=== PATIENT | female | born 1975 | race Caucasian/White ===

== ENCOUNTER 2016-06-13 19:37 | Inpatient (IN) | payer MEDICAID ==
[~2016-06-13] VITALS: Ht 170.2 cm; Wt 106.2 kg
[~2016-06-13 19:37] MED LIST: ACET325T38 PO; CEPH-507 PO; LEVO125T6 PO; PEDI1TAB35 PO
--- OUTSIDE RECORDS SUMMARY | 2016-06-13 19:40 | XMS REPORT | Continuity of Care Document ---
Author Author [facility] Organization [facility] Address Unknown Phone Unavailable Care Team Providers Care Psychological Anthropologist Name Role Phone NO, LOCAL PHYSICIAN PCP Unavailable Insurance Providers Payer Name Policy Number Subscriber Name Relationship Medicaid [place] [id number] Jadyn Cole 19 Self / Same As Patient Advance Directives Directive Response Recorded Date/Time Advance Directives No 05/25/16 10:35pm Organ Donor No 05/25/16 10:35pm Resuscitation Status Full Code 05/25/16 10:35pm Problems No problem information available. Medications Current Home Medications Medication Dose Units Route Directions Days/Qty Instructions Start Date Pediatric Multivit Comb. No.49 1 Each 1 Each Oral Daily 05/24/16 Acetaminophen 325 Mg 325 Mg Oral As Needed 05/24/16 Cephalexin 500 Mg 500 Mg Oral Four Times Daily 7 Days 05/24/16 Levothyroxine Sodium 125 Mcg 125 Mcg Oral Daily 05/25/16 Social History Social History Problem Response Recorded Date/Time Recent Foreign Travel No 05/25/2016 10:41pm Recent Infectious Disease Exposure No 05/25/2016 10:41pm Smoking Status Never a Smoker 05/25/2016 10:37pm Query Response Start Date Stop Date Smoking Status Never a Smoker Hospital Discharge Instructions No hospital discharge instructions. Plan of Care Discharge Date 05/25/16 11:55pm Instructions/Education Provided OB OUTPATIENT DISCHARGE Prescriptions See Medication Section Functional Status No functional status results. Allergies, Adverse Reactions, Alerts No known allergies. Immunizations No immunization records. Vital Signs Acute Vital Signs Vital Response Date/Time Temperature (Fahrenheit) 97.3 degrees F (97.6 - 99.5) 05/25/2016 10:10pm Temperature (Calculated Celsius) 36.04542 degrees C (36.4 - 37.5) 05/25/2016 10:10pm Temperature Source Tympanic 05/25/2016 10:10pm Pulse Rate (adult) 88 bpm (60 - 90) 05/25/2016 11:30pm Respiratory Rate 18 bpm (12 - 24) 05/25/2016 11:30pm Blood Pressure 113/70 mm Hg 05/25/2016 11:30pm Blood Pressure Mean 84 mm Hg 05/25/2016 11:30pm Pain Numeric Pain Scale 9 05/25/2016 10:37pm Height (Feet) 5 feet 05/25/2016 10:42pm Height (Inches) 7.00 inches 05/25/2016 10:42pm Height (Calculated Centimeters) 170.749455 cm 05/25/2016 10:42pm Weight (Pounds) 228 pounds 05/25/2016 10:42pm Weight (Ounces) 2.0 oz 05/25/2016 10:42pm Weight (Calculated Grams) 870485.76 gm 05/25/2016 10:42pm Weight (Calculated Kilograms) 103.320614 kilograms 05/25/2016 10:42pm Calculated BMI 35.7 05/25/2016 10:42pm Results Laboratory Results Test Name Result Units Flags Reference Collection Date/Time Result Date/ Time Comments White Blood Count 8.0 10^3/uL 4.3-11.0 05/24/2016 6:20am 05/24/2016 6: 45am Red Blood Count 4.07 10^6/uL L 4.35-5.85 05/24/2016 6:20am 05/24/2016 6: 45am Hemoglobin 11.7 G/DL 11.5-16.0 05/24/2016 6:20am 05/24/2016 6:45am Hematocrit 36 % 35-52 05/24/2016 6:20am 05/24/2016 6:45am Mean Corpuscular Volume 88 FL 80-99 05/24/2016 6:20am 05/24/2016 6: 45am Mean Corpuscular Hemoglobin 29 PG 25-34 05/24/2016 6:05/24/2016 6: 45am Mean Corpuscular Hemoglobin Concent 33 G/DL 32-36 05/24/2016 6:20 6:45am Red Cell Distribution Width 14.1 % 10.0-14.5 05/24/2016 6:202015 6:45am Platelet Count 159 10^3/uL 130-400 05/24/2016 6:2005/24/2016 6:45am Mean Platelet Volume 11.2 FL H 7.4-10.4 05/24/2016 6:2005/24/2016 6: 45am Neutrophils (%) (Auto) 72 % 42-75 05/24/2016 6:05/24/2016 6:45am Lymphocytes (%) (Auto) 17 % 12-44 05/24/2016 6:05/24/2016 6:45am Monocytes (%) (Auto) 9 % 0-12 05/24/2016 6:05/24/2016 6:45am Eosinophils (%) (Auto) 2 % 0-10 05/24/2016 6:05/24/2016 6:45am Basophils (%) (Auto) 0 % 0-10 05/24/2016 6:05/24/2016 6:45am Neutrophils # (Auto) 5.8 X 10^3 1.8-7.8 05/24/2016 6:05/24/2016 6: 45am Lymphocytes # (Auto) 1.3 X 10^3 1.0-4.0 05/24/2016 6:05/24/2016 6: 45am Monocytes # (Auto) 0.7 X 10^3 0.0-1.0 05/24/2016 6:2005/24/2016 6: 45am Eosinophils # (Auto) 0.2 10^3/uL 0.0-0.3 05/24/2016 6:05/24/2016 6 :45am Basophils # (Auto) 0.0 10^3/uL 0.0-0.1 05/24/2016 6:2005/24/2016 6: 45am Urine Color YELLOW 05/24/2016 4:35am 05/24/2016 5:55am Urine Clarity CLEAR 05/24/2016 4:35am 05/24/2016 5:55am Urine pH 6 5-9 05/24/2016 4:35am 05/24/2016 5:55am Urine Specific [place] 1.025 * 1.016-1.022 05/24/2016 4:35am 2015 5:55am Urine Protein 2+ * NEGATIVE 05/24/2016 4:35am 05/24/2016 5:55am Urine Glucose (UA) NEGATIVE NEGATIVE 05/24/2016 4:35am 05/24/2016 5: 55am Urine RBC (Auto) 3+ * NEGATIVE 05/24/2016 4:35am 05/24/2016 5:55am Urine Ketones 1+ * NEGATIVE 05/24/2016 4:35am 05/24/2016 5:55am Urine Nitrite NEGATIVE NEGATIVE 05/24/2016 4:35am 05/24/2016 5:55am Urine Bilirubin 1+ * NEGATIVE 05/24/2016 4:35am 05/24/2016 5:55am The confirmatory Ictotest was negative. Urine Urobilinogen NORMAL MG/DL NORMAL 05/24/2016 4:35am 05/24/2016 5: 55am Urine Leukocyte Esterase 1+ * NEGATIVE 05/24/2016 4:35am 05/24/2016 5: 55am Urine RBC 5-10 /HPF * 05/24/2016 4:35am 05/24/2016 5:55am Urine WBC 2-5 /HPF 05/24/2016 4:35am 05/24/2016 5:55am Urine Bacteria LARGE /HPF * 05/24/2016 4:35am 05/24/2016 5:55am Urine Squamous Epithelial Cells 2-5 /HPF 05/24/2016 4:35am 2015 5:55am Urine Crystals NONE /LPF 05/24/2016 4:35am 05/24/2016 5:55am Urine Casts NONE /LPF 05/24/2016 4:35am 05/24/2016 5:55am Urine Mucus MODERATE /LPF * 05/24/2016 4:35am 05/24/2016 5:55am Urine Culture Indicated YES 05/24/2016 4:35am 05/24/2016 5:55am Glucometer 88 MG/DL 70-110 05/24/2016 7:43am 05/24/2016 8:10am Pending Laboratory Results Test Name Collection Date/Time Microbiology Results Procedure Source Result Collection Date/Time Result Date/Time Urine Culture Urine, Clean Catch STAPH, COAG NEG (BOOKSEAMER BLINDSTITCH) 05/24/2016 4:35am 9:42am STREP AGALACTIAE GROUP B 05/24/2016 4:35am 05/26/2016 9:42am Procedures No known history of procedures. Encounters Encounter Location Arrival/Admit Date Discharge/Depart Date Attending Provider Departed Clinic [facility] 05/25/16 10:00pm 05/25/16 11: 55pm ELICEO MCKEE DO Departed Clinic [facility] 05/24/16 4:25am 05/24/16 8: 41am ELICEO MCKEE DO
[2016-06-13 19:57] VITALS: BP 121/66
[2016-06-13] MEDS ORDERED: OMEP20TA33 PO (21:02)
[2016-06-13] MEDS ORDERED: D5 LR IV SOLUTION 1,000 ML IV SCH (21:07)
[2016-06-13] MEDS ORDERED: FAMOTIDINE 20 MG (PEPCID) TABLET PO PRN (21:15)
[2016-06-13] MEDS ORDERED: MINERAL OIL CONCENTRATE 99.9% 15 ML UDC TOP PRN (21:15)
[2016-06-13] MEDS ORDERED: CATHETER FLUSH 10 ML SYR IV SCH (22:00)
[2016-06-13] MEDS ORDERED: NORMAL SALINE (BAXTER MINI) 50 ML IV ONE (23:38)
[2016-06-13] MEDS ORDERED: AMPICILLIN 2000 MG INJECTION (IM/IV) ONE (23:38)
[2016-06-13] MEDS ORDERED: AMPICILLIN INJECTION 2,000 MG in NORMAL SALINE (BAXTER MINI) 50 ML IV SCH (23:39)
[2016-06-14] VITALS (38 sets, daily range): BP systolic 94–129; BP diastolic 50–77
[2016-06-14 00:58] LABS: BILIRUBIN,URINE NEGATIVE (NEGATIVE); KETONES,URINE 1+ (NEGATIVE); LEUKOCYTE ESTERASE ,URINE NEGATIVE (NEGATIVE); NITRITE,URINE NEGATIVE (NEGATIVE); PH,URINE 6 (5-9); PROTEIN,URINE 1+ (NEGATIVE); UROBILINOGEN,URINE NORMAL (NORMAL)
[2016-06-14 00:59] LABS: CALCIUM OXALATE CRYSTALS,UR MODERATE /LPF; WBC,URINE RARE /HPF
[2016-06-14 00:59] LABS: BASOPHILS % (AUTO) 0 % (0-10); EOSINOPHILS # (AUTO) 0.3 10^3/uL (0.0-0.3); EOSINOPHILS % (AUTO) 3 % (0-10); LYMPHOCYTES # (AUTO) 1.4 X 10^3 (1.0-4.0); LYMPHOCYTES % (AUTO) 18 % (12-44); MEAN CORPUSCULAR HEMOGLOBIN 29 PG (25-34); MEAN CORPUSCULAR HGB CONC 33 G/DL (32-36); MEAN CORPUSCULAR VOLUME 87 FL (80-99); MEAN PLATELET VOLUME 11.2 FL (7.4-10.4); MONOCYTES # (AUTO) 0.7 X 10^3 (0.0-1.0); MONOCYTES % (AUTO) 9 % (0-12); NEUTROPHILS # (AUTO) 5.7 X 10^3 (1.8-7.8); NEUTROPHILS % (AUTO) 70 % (42-75); PLATELET COUNT 177 10^3/uL (130-400); RED BLOOD COUNT 4.18 10^6/uL (4.35-5.85); RED CELL DISTRIBUTION WIDTH 14.9 % (10.0-14.5); WHITE BLOOD COUNT 8.1 10^3/uL (4.3-11.0)
[2016-06-14] MEDS ORDERED: CETI10TA20 PO (02:51)
[2016-06-14] MEDS ORDERED: PSEU-137 PO (02:51)
[2016-06-14] MEDS ORDERED: ACETAMINOPHEN 500 MG TAB (TYLENOL) PO PRN (03:00)
[2016-06-14] MEDS ORDERED: AMPICILLIN 1000 MG INJECTION (IV/IM) ONE (03:55)
[2016-06-14] MEDS ORDERED: NORMAL SALINE (BAXTER MINI) 50 ML IV ONE (03:55)
[2016-06-14] MEDS: AMPICILLIN INJECTION 1,000 MG in NORMAL SALINE (BAXTER MINI) 50 ML IV SCH ×2 (04:03→08:57)
[2016-06-14] MEDS ORDERED: OXYTOCIN/NORMAL SALINE 500 ML IV ONE (05:01)
[2016-06-14] MEDS ORDERED: PHYTONADIONE (VIT. K) NEONATAL 1 MG/0.5 ML AMP ONE (05:51)
[2016-06-14] MEDS ORDERED: ERYTHROMYCIN OPHTH OINT 1 GM (SINGLE USE) TUBE ONE (05:51)
[2016-06-14] MEDS ORDERED: PETROLATUM JELLY 16.8 GM TUBE (VASELINE) ONE (05:52)
[2016-06-14] MEDS: OXYTOCIN/NORMAL SALINE 500 ML IV SCH ×2 (06:20→13:10)
[2016-06-14] MEDS ORDERED: SUFENTA 1 MCG/ML BUPIVA 0.1% 100 ML ONE (07:29)
[2016-06-14] MEDS ORDERED: FLU TRIvalent (5 YOA+) 2016-17 (AFLURIA) 0.5 ML IM ONE (08:15)
[2016-06-14] MEDS ORDERED: BUPIVACAINE 0.25% 30 ML (SENSORCAINE) VIAL ONE (08:42)
[2016-06-14] MEDS ORDERED: fentaNYL INJECTION 100 MCG/2 ML AMP ONE (08:42)
--- NOTE | 2016-06-14 08:59 | History & Physical-OB ---
OB - Chief Complaint & HPI Date Date of Admission: Date of Admission: Jun 13, 2016 at 20:20 Chief Complaint/History OB-Reason for Admission/Chief: Induction of Labor Hx : 9 Hx Para: 8 Expected Date of Delivery: Jun 15, 2016 Gestational Age in Weeks: 39 Gestational Age in Days: 6 Indication for induction: other (AMA) Other reason for admission: Jadyn is a 41 y/o @ 39w6d, patient of Dr. Du, here for contractions. She has a history of fast labor and is AMA. She was set up for IOL last Thursday but could not be induced for staffing reasons; for social reasons she was unable to come until last night and was instructed by Dr. Du to come anytime she could make it and she would be delivered. On presentation, had mild contractions (no cervical change) and was kept overnight for IOL this AM. Fetus is active, no LOF VB. She is pleasant this morning and excited to meet her baby "Iesha". History of Labs A+ Antibody neg RI Hep B neg HIV neg RPR NR GBSuria TSH elevated, last TSH 8 in April Elevated 1 hr GTT, 1 value abnormal on 3 hr GTT GC/CT not listed (shows ordered but I do not see a result) Allergies and Home Medications Allergies Coded Allergies: No Known Drug Allergies (Unverified , 05/24/16) Home Medications Acetaminophen 325 Mg Tablet 325 MG PO PRN (Reported) Cetirizine HCl 10 Mg Tablet 10 MG PO DAILY (Reported) Levothyroxine Sodium 125 Mcg Tablet 125 MCG PO DAILY (Reported) Omeprazole Magnesium 20 Mg Tablet.dr 20 MG PO (Reported) Pediatric Multivit Comb. No.49 1 Each Tab.chew 1 EACH PO DAILY (Reported) Pseudoephedrine HCl 30 Mg Tablet 30 MG PO PRN (Reported) OB - History Hx of Present Care: Yes Ultrasounds: Normal mid trimester US Obstetrical Complications: Other (AMA) Medical Complications: Other (GERD, class II obesity, hypothyroidism, asthma, seasonal allergies) Information Induced Hypertension: No Maternal Gestational Diabetes: Yes (in previous ) Hemorrhage: No Obstetrical History Hx : 9 Hx Para: 8 Hx Total # of Abortions (Spona: 0 Delivery History Hx Dystocia: No Hx Forceps Assisted Delivery: No Hx Vacuum Extraction Assisted: No Hx Placenta Abnormality: No Hx Distress: No Hx Section: No Hx Vaginal Delivery Post C-Sec: No Hx Blood Disorders: No Adverse Rxn to Tranfusion: No Patient Past Medical History see above Social History/Family History Recent Infectious Disease Expo: No Alcohol Use: Denies Use Smoking Cessation: Never smoker Immunizations Tetanus Booster (TDap): Less than 5yrs (03/06/16) OB - Admission Exam Physical Exam Vitals: Vital Signs 06/14/16 06/14/16 05:55 07:00 Temp 96.1 Pulse 84 Resp 18 B/P 114/59 O2 Delivery Room Air HEENT: NCAT Heart: Rhythm Normal Lungs: Clear Abdomen: Gravid Extremities: Normal Reflexes: Normal Cervical Dilatation: 3cm Effacement: 75% Station: -2 Membranes: Ruptured Amniotic Fluid: Clear Heart Rate: 140's Accelerations: Accelerations Present Decelerations: No Decelerations Short Term Variability: Present Alf Variability: Average (6-25) Contractions on Admission: >10 Minutes Apart Clemens Scoring Tool (Modified) Dilation (cm): 3-4cm (2) Effacement (%): 51-79% (2) Descent/Station: -2 (1) Cervix Consistency: Medium(1) Cervix Position: Posterior (0) Add 1 point for: Each previous vaginal delivery (1) Clemens Score: 14 Labs Laboratory Tests Test 06/13/16 19:45 06/14/16 00:24 Range/Units Ur Tricyclic Antidepressants Screen NEGATIVE NEGATIVE Urine Amphetamines Screen NEGATIVE NEGATIVE Urine Bacteria MODERATE H /HPF Urine Barbiturates Screen NEGATIVE NEGATIVE Urine Benzodiazepines Screen NEGATIVE NEGATIVE Urine Bilirubin NEGATIVE NEGATIVE Urine Calcium Oxalate Crystals MODERATE H /LPF Urine Cannabinoids Screen NEGATIVE NEGATIVE Urine Casts NONE /LPF Urine Clarity SLIGHTLY CLOUDY Urine Cocaine Screen NEGATIVE NEGATIVE Urine Color YELLOW Urine Crystals PRESENT H /LPF Urine Culture Indicated YES Urine Glucose (UA) NEGATIVE NEGATIVE Urine Ketones 1+ H NEGATIVE Urine Leukocyte Esterase NEGATIVE NEGATIVE Urine Methadone Screen NEGATIVE NEGATIVE Urine Methamphetamines Screen NEGATIVE NEGATIVE Urine Mucus NEGATIVE /LPF Urine Nitrite NEGATIVE NEGATIVE Urine Opiates Screen NEGATIVE NEGATIVE Urine Oxycodone Screen NEGATIVE NEGATIVE Urine Phencyclidine Screen NEGATIVE NEGATIVE Urine Propoxyphene Screen NEGATIVE NEGATIVE Urine Protein 1+ H NEGATIVE Urine RBC RARE /HPF Urine RBC (Auto) 3+ H NEGATIVE Urine Specific [place] 1.020 1.016-1.022 Urine Squamous Epithelial Cells 10-25 H /HPF Urine Urobilinogen NORMAL NORMAL MG/DL Urine WBC RARE /HPF Urine pH 6 5-9 Basophils # (Auto) 0.0 0.0-0.1 10^3/uL Basophils (%) (Auto) 0 0-10 % Eosinophils # (Auto) 0.3 0.0-0.3 10^3/uL Eosinophils (%) (Auto) 3 0-10 % Hematocrit 36 35-52 % Hemoglobin 11.9 11.5-16.0 G/DL Lymphocytes # (Auto) 1.4 1.0-4.0 X 10^3 Lymphocytes (%) (Auto) 18 12-44 % Mean Corpuscular Hemoglobin 29 25-34 PG Mean Corpuscular Hemoglobin Concent 33 32-36 G/DL Mean Corpuscular Volume 87 80-99 FL Mean Platelet Volume 11.2 H 7.4-10.4 FL Monocytes # (Auto) 0.7 0.0-1.0 X 10^3 Monocytes (%) (Auto) 9 0-12 % Neutrophils # (Auto) 5.7 1.8-7.8 X 10^3 Neutrophils (%) (Auto) 70 42-75 % Platelet Count 177 130-400 10^3/uL Red Blood Count 4.18 L 4.35-5.85 10^6/uL Red Cell Distribution Width 14.9 H 10.0-14.5 % White Blood Count 8.1 4.3-11.0 10^3/uL OB - Assessment/Plan/Diagnosis Assessment Assessment: induction of labor Plan Plan: Induction Induction Method: per Pitocin Protocol Other Plan 41 yo @ 39w6d here for contractions, kept for IOL as per Dr. Du's instructions for AMA GBSuria Hypothyroidism on synthroid Seasonal allergies Class II obesity AMA with normal NIPT screen IOL with pitocin/AROM Ampicillin (as been running since 0000 today) ASVD SS consult (limited compliance with care surrounding delivery due to rides, otherwise states she lives with her kids and has just completed a move to [place]) FREDERICK LEA MD Jun 14, 2016 08:58
[2016-06-14] MEDS ORDERED: LACTATED RINGERS 1,000 ML IV SCH (09:08)
[2016-06-14] MEDS ORDERED: METHYLERGONOVINE 0.2 MG/ML (METHERGINE) AMP ONE (09:14)
[2016-06-14] MEDS ORDERED: METOCLOPRAMIDE INJ 10 MG/2 ML (REGLAN) IV PRN (09:15)
[2016-06-14] MEDS ORDERED: ONDANSETRON 4 MG/2 ML (SDV) Z0FRAN IV PRN (09:15)
[2016-06-14] MEDS ORDERED: NALOXONE 0.4 MG/ML 1 ML (NARCAN) VIAL IV PRN ×2 (09:15)
[2016-06-14] MEDS ORDERED: EPIDURAL (SUFENTANIL 1 MCG/ML BUPIVACAINE 0.1%) 100 ML EPI SCH (09:15)
[2016-06-14] MEDS ORDERED: diphenhydrAMINE 50 MG/ML INJ (BENADRYL) IV PRN (09:15)
[2016-06-14] MEDS ORDERED: LIDOCAINE/EPI 1%-1:200,000 (XYLOCAINE) 30 ML VIAL ONE (11:14)
--- NOTE | 2016-06-14 12:21 | OB Labor & Delivery Record ---
Vag Delivery Note Vag Delivery Note Date of Delivery: 06/14/16 Preoperative Diagnosis: Jadyn Greenwood is a 41 y/o @ 39w6d with IOL for AMA GBSuria Hypothyroidism GERD Class II obesity Postoperative Diagnosis: Same Surgeon: Cristina Jung MD Anesthesia: Epidural Delivery Type: Spontaneous vaginal delivery Findings: Viable female , apgars 8/9, weight pending at time of this note Lacerations: none Intact placenta with 3 vessel cord. No nuchal cord, body cord or shoulder dystocia. Compound left hand presentation. Estimated Blood Loss: 300 ml Complications: None Condition: Stable Description of Procedure: The patient is a 41 y/o @ 39w5d on presentation who presented for contractions and to be induced as her induction had been delayed. She was admitted and informed consent was obtained. Her labor course was remarkable for ampicillin for GBS prophylaxis (received 3 doses), pitocin per protocol, and AROM with clear fluid. She did have an epidural placed for analgesia. She progressed to complete dilatation and began to push. She was then set up for delivery. The 's head was delivered atraumatically in the left occiput anterior position. The shoulders and remainder of the infant's body were then delivered without difficulty. Upon delivery, the head was held below the level of the perineum and the mouth and nares were bulb suctioned, and then the was placed on her mother's chest. The cord was doubly clamped and cut after a pause of 60 seconds. An intact placenta with 3-vessel cord delivered via [place] and there was found to be minimal bleeding. Vigorous fundal massage was performed and the fundus was found to be firm. IV oxytocin was given. Examination of the vagina and perineum revealed no lacerations. Following the repair, sponge and instrument counts were correct. Mom and baby were both in stable condition in the labor suite. Copies To 1: DONAL TREVINO DO Vitals - Labs Vital Signs - I&O Vital Signs Date Time Temp Pulse Resp B/P Pulse Ox O2 Delivery O2 Flow Rate FiO2 06/14/16 11:15 88 16 110/58 Room Air 06/14/16 11:00 86 16 107/54 Room Air 06/14/16 10:45 81 18 108/56 Room Air 06/14/16 10:30 83 18 105/59 Room Air 06/14/16 10:15 98.7 88 18 94/64 Room Air 06/14/16 10:00 86 18 102/57 Room Air 06/14/16 09:45 18 Room Air 06/14/16 09:30 101 18 102/51 98 Room Air 06/14/16 09:15 105 18 110/53 Room Air 06/14/16 09:00 101 18 114/60 98 Room Air 06/14/16 08:45 99 18 111/59 Room Air 06/14/16 08:30 98.1 101 18 116/63 99 Room Air 06/14/16 08:25 100 18 117/63 99 Room Air 06/14/16 08:20 100 122/65 100 06/14/16 08:15 93 18 126/67 98 Room Air 06/14/16 08:00 95 18 125/72 Room Air 06/14/16 07:45 91 18 106/62 Room Air 06/14/16 07:30 87 18 113/63 Room Air 06/14/16 07:15 88 18 110/59 Room Air 06/14/16 07:00 84 18 114/59 Room Air 06/14/16 06:45 93 18 116/69 Room Air 06/14/16 06:30 82 18 108/59 Room Air 06/14/16 06:25 86 18 114/63 Room Air 06/14/16 05:55 96.1 90 18 116/59 Room Air 06/14/16 02:43 96.7 100 18 116/57 Room Air 06/13/16 19:57 97.4 103 18 121/66 Room Air Labs Laboratory Tests 06/13/16 19:45: Ur Tricyclic Antidepressants Screen NEGATIVE, Urine Amphetamines Screen NEGATIVE , Urine Bacteria MODERATEH, Urine Barbiturates Screen NEGATIVE, Urine Benzodiazepines Screen NEGATIVE, Urine Bilirubin NEGATIVE, Urine Calcium Oxalate Crystals MODERATEH, Urine Cannabinoids Screen NEGATIVE, Urine Casts NONE , Urine Clarity SLIGHTLY CLOUDY, Urine Cocaine Screen NEGATIVE, Urine Color YELLOW, Urine Crystals PRESENTH, Urine Culture Indicated YES, Urine Glucose (UA ) NEGATIVE, Urine Ketones 1+H, Urine Leukocyte Esterase NEGATIVE, Urine Methadone Screen NEGATIVE, Urine Methamphetamines Screen NEGATIVE, Urine Mucus NEGATIVE, Urine Nitrite NEGATIVE, Urine Opiates Screen NEGATIVE, Urine Oxycodone Screen NEGATIVE, Urine Phencyclidine Screen NEGATIVE, Urine Propoxyphene Screen NEGATIVE, Urine Protein 1+H, Urine RBC RARE, Urine RBC (Auto ) 3+H, Urine Specific [place] 1.020, Urine Squamous Epithelial Cells 10-25H, Urine Urobilinogen NORMAL, Urine WBC RARE, Urine pH 6 06/14/16 00:24: Basophils # (Auto) 0.0, Basophils (%) (Auto) 0, Eosinophils # (Auto) 0.3, Eosinophils (%) (Auto) 3, Hematocrit 36, Hemoglobin 11.9, Lymphocytes # (Auto) 1.4, Lymphocytes (%) (Auto) 18, Mean Corpuscular Hemoglobin 29, Mean Corpuscular Hemoglobin Concent 33, Mean Corpuscular Volume 87, Mean Platelet Volume 11.2H, Monocytes # (Auto) 0.7, Monocytes (%) (Auto) 9, Neutrophils # ( Auto) 5.7, Neutrophils (%) (Auto) 70, Platelet Count 177, Red Blood Count 4.18L , Red Cell Distribution Width 14.9H, White Blood Count 8.1 CRISTINA JUNG MD Jun 14, 2016 12:21
[2016-06-14] MEDS ORDERED: DOCU-143 PO (13:00)
[2016-06-14] MEDS ORDERED: IBUP-1773 PO (13:00)
--- NOTE | 2016-06-14 13:02 | Discharge Inst-Women's Service ---
Discharge Inst-Women's Serv Depart Medication/Instructions New, Converted or Re-Newed RX: RX on Chart Final Diagnosis AMA, IOL, Consults/Follow Up Additional Follow Up: Yes Orders/Referrals [address] Du Activity Activity: Activity as Tolerated Driving Instructions: You May Drive NO SMOKING: NO SMOKING Nothing Inside Vagina: No Douching, No [place], No Tampons Other Activity No heavy lifting > 10lb, no strenuous activity for 2 weeks Diet Discharge Diet: No Restrictions Symptoms to Report to : Bleeding Excessive, Pain Increased, Fever Over 101 Degrees F, Pain/Pressure in Chest, Vaginal Bleeding Increase, Dizziness/Fainting , Nausea/Vomiting, Shortness of Breath For Any Problems or Questions: Contact Your Physician Skin/Wound Care Bathing Instructions: FREDERICK Vasquez MD Jun 14, 2016 13:01
[2016-06-14] MEDS ORDERED: FERR-74 PO (13:04)
[2016-06-14] MEDS ORDERED: OXYTOCIN/NORMAL SALINE 500 ML IV SCH (14:19)
[2016-06-14] MEDS ORDERED: TETANUS,DIPTH,PERTUSS P/F (BOOSTRIX) 0.5 ML VIAL IM ONE (14:30)
[2016-06-14] MEDS ORDERED: PATIENT MAY USE OWN MED,SINGLE MED PO SCH (14:30)
[2016-06-14] MEDS ORDERED: WITCH HAZEL(TUCKS) 40 EA JAR TOP PRN (14:30)
[2016-06-14] MEDS ORDERED: BENZOCAINE/MENTHOL (DERMOPLAST) 56 ML CAN TP PRN (14:30)
[2016-06-14] MEDS ORDERED: MEASLES,MUMPS,RUBELLA 1 EA INJ SQ ONE (14:30)
[2016-06-14] MEDS: IBUPROFEN 600 MG (MOTRIN) TAB PO SCH ×2 (16:39→23:01)
[2016-06-14] MEDS: DOCUSATE SODIUM 100 MG (COLACE) CAP PO SCH (20:43)
[2016-06-14] MEDS ORDERED: CATHETER FLUSH 10 ML SYR IV SCH (22:00)
[2016-06-15 04:10] VITALS: BP 134/89
[2016-06-15] MEDS: IBUPROFEN 600 MG (MOTRIN) TAB PO SCH ×2 (04:10→10:31)
[2016-06-15 06:00] LABS: BASOPHILS % (AUTO) 0 % (0-10); EOSINOPHILS # (AUTO) 0.2 10^3/uL (0.0-0.3); EOSINOPHILS % (AUTO) 2 % (0-10); LYMPHOCYTES # (AUTO) 1.2 X 10^3 (1.0-4.0); LYMPHOCYTES % (AUTO) 12 % (12-44); MEAN CORPUSCULAR HEMOGLOBIN 28 PG (25-34); MEAN CORPUSCULAR HGB CONC 32 G/DL (32-36); MEAN CORPUSCULAR VOLUME 88 FL (80-99); MEAN PLATELET VOLUME 11.2 FL (7.4-10.4); MONOCYTES # (AUTO) 0.8 X 10^3 (0.0-1.0); MONOCYTES % (AUTO) 8 % (0-12); NEUTROPHILS # (AUTO) 8.1 X 10^3 (1.8-7.8); NEUTROPHILS % (AUTO) 79 % (42-75); PLATELET COUNT 159 10^3/uL (130-400); RED BLOOD COUNT 3.96 10^6/uL (4.35-5.85); RED CELL DISTRIBUTION WIDTH 14.9 % (10.0-14.5); WHITE BLOOD COUNT 10.2 10^3/uL (4.3-11.0)
[2016-06-15] MEDS ORDERED: PRENATAL VITAMIN 1 EA TAB PO SCH (07:00)
[2016-06-15] MEDS ORDERED: PANTOPRAZOLE 20 MG TABLET (PROTONIX) PO SCH (08:00)
[2016-06-15] MEDS ORDERED: LEVOTHYROXINE 125 MCG (LEVOTHROID) TABLET PO SCH (08:00)
[2016-06-15] MEDS ORDERED: FERROUS SULF 325 MG (IRON) TAB PO SCH (09:00)
--- NOTE | 2016-06-15 09:31 | Postpartum Progress Note ---
Note Note Day # 1 Subjective: Patient is without complaints. Ambulating, voiding. Tolerating a regular diet without nausea or vomiting. Normal lochia. Pain is well controlled with oral pain medications. Breast and bottle feeding. Objective: VS - Last 72 Hours, by Label 06/13/16 06/14/16 06/14/16 06/14/16 19:57 02:43 05:55 06:25 Temp 97.4 96.7 96.1 Pulse 103 100 90 86 Resp 18 18 18 18 B/P 121/66 116/57 116/59 114/63 O2 Delivery Room Air Room Air Room Air Room Air 06/14/16 06/14/16 06/14/16 06/14/16 06:30 06:45 07:00 07:15 Pulse 82 93 84 88 Resp 18 18 18 18 B/P 108/59 116/69 114/59 110/59 O2 Delivery Room Air Room Air Room Air Room Air 06/14/16 06/14/16 06/14/16 06/14/16 07:30 07:45 08:00 08:15 Pulse 87 91 95 93 Resp 18 18 18 18 B/P 113/63 106/62 125/72 126/67 Pulse Ox 98 O2 Delivery Room Air Room Air Room Air Room Air 06/14/16 06/14/16 06/14/16 06/14/16 08:20 08:25 08:30 08:45 Temp 98.1 Pulse 100 100 101 99 Resp 18 18 18 B/P 122/65 117/63 116/63 111/59 Pulse Ox 100 99 99 O2 Delivery Room Air Room Air Room Air 06/14/16 06/14/16 06/14/16 06/14/16 09:00 09:15 09:30 09:45 Pulse 101 105 101 Resp 18 18 18 18 B/P 114/60 110/53 102/51 Pulse Ox 98 98 O2 Delivery Room Air Room Air Room Air Room Air 06/14/16 06/14/16 06/14/16 06/14/16 10:00 10:15 10:30 10:45 Temp 98.7 Pulse 86 88 83 81 Resp 18 18 18 18 B/P 102/57 94/64 105/59 108/56 O2 Delivery Room Air Room Air Room Air Room Air 06/14/16 06/14/16 06/14/16 06/14/16 11:00 11:15 11:30 11:45 Pulse 86 88 82 97 Resp 16 16 16 18 B/P 107/54 110/58 103/59 112/68 O2 Delivery Room Air Room Air Room Air Room Air 06/14/16 06/14/16 06/14/16 06/14/16 12:01 12:13 12:21 12:36 Temp 98.9 Pulse 94 94 88 B/P 120/57 118/60 116/69 O2 Delivery Room Air 06/14/16 06/14/16 06/14/16 06/14/16 12:51 13:06 13:21 13:37 Temp 98.5 Pulse 76 85 84 87 Resp 16 16 B/P 119/71 112/50 114/58 120/64 O2 Delivery Room Air Room Air 06/14/16 06/14/16 06/14/16 06/14/16 13:51 14:06 15:26 20:43 Temp 98.4 98.7 Pulse 78 92 100 100 Resp 16 16 16 16 B/P 116/57 129/59 116/58 126/77 Pulse Ox 98 O2 Delivery Room Air Room Air Room Air Room Air 06/14/16 06/15/16 23:10 04:10 Temp 98.0 97.0 Pulse 88 79 Resp 16 18 B/P 122/76 134/89 Pulse Ox 98 98 O2 Delivery Room Air Room Air Physical Exam: General - Alert and oriented, no apparent distress Abdomen - Soft, appropriately tender to palpation, non-distended, fundus firm at umbilicus Extremities - no edema, negative Lolita's bilaterally Laboratory Tests Test 06/15/16 05:55 Range/Units Basophils # (Auto) 0.0 0.0-0.1 10^3/uL Basophils (%) (Auto) 0 0-10 % Eosinophils # (Auto) 0.2 0.0-0.3 10^3/uL Eosinophils (%) (Auto) 2 0-10 % Hematocrit 35 35-52 % Hemoglobin 11.1 L 11.5-16.0 G/DL Lymphocytes # (Auto) 1.2 1.0-4.0 X 10^3 Lymphocytes (%) (Auto) 12 12-44 % Mean Corpuscular Hemoglobin 28 25-34 PG Mean Corpuscular Hemoglobin Concent 32 32-36 G/DL Mean Corpuscular Volume 88 80-99 FL Mean Platelet Volume 11.2 H 7.4-10.4 FL Monocytes # (Auto) 0.8 0.0-1.0 X 10^3 Monocytes (%) (Auto) 8 0-12 % Neutrophils # (Auto) 8.1 H 1.8-7.8 X 10^3 Neutrophils (%) (Auto) 79 H 42-75 % Platelet Count 159 130-400 10^3/uL Red Blood Count 3.96 L 4.35-5.85 10^6/uL Red Cell Distribution Width 14.9 H 10.0-14.5 % White Blood Count 10.2 4.3-11.0 10^3/uL Assessment: 41 y/o post- day # 1, status post spontaneous vaginal delivery. Recovering well, hemodynamically stable Rh+ RI Hypothyroidism GERD Seasonal allergies Class II obesity Plan: Routine care. Encourage breast feeding. Encourage ambulation. Plan for discharge today, f/u with Dr. Du in 6 weeks, will need TSH at that time, continue synthroid current dose at home FREDERICK LEA MD Jun 15, 2016 09:31 Vital Signs Date Time Temp Pulse Resp B/P Pulse Ox O2 Delivery O2 Flow Rate FiO2 06/15/16 04:10 97.0 79 18 134/89 98 Room Air 06/14/16 23:10 98.0 88 16 122/76 98 Room Air 06/14/16 20:43 98.7 100 16 126/77 98 Room Air 06/14/16 15:26 98.4 100 16 116/58 Room Air 06/14/16 14:06 92 16 129/59 Room Air 06/14/16 13:51 78 16 116/57 Room Air 06/14/16 13:37 98.5 87 16 120/64 Room Air 06/14/16 13:21 84 16 114/58 Room Air 06/14/16 13:06 85 112/50 06/14/16 12:51 76 119/71 06/14/16 12:36 98.9 88 116/69 06/14/16 12:21 94 118/60 06/14/16 12:13 94 120/57 06/14/16 12:01 Room Air 06/14/16 11:45 97 18 112/68 Room Air 06/14/16 11:30 82 16 103/59 Room Air 06/14/16 11:15 88 16 110/58 Room Air 06/14/16 11:00 86 16 107/54 Room Air 06/14/16 10:45 81 18 108/56 Room Air 06/14/16 10:30 83 18 105/59 Room Air 06/14/16 10:15 98.7 88 18 94/64 Room Air 06/14/16 10:00 86 18 102/57 Room Air 06/14/16 09:45 18 Room Air 06/14/16 09:30 101 18 102/51 98 Room Air Labs Laboratory Tests 06/15/16 05:55: Basophils # (Auto) 0.0, Basophils (%) (Auto) 0, Eosinophils # (Auto) 0.2, Eosinophils (%) (Auto) 2, Hematocrit 35, Hemoglobin 11.1L, Lymphocytes # (Auto) 1.2, Lymphocytes (%) (Auto) 12, Mean Corpuscular Hemoglobin 28, Mean Corpuscular Hemoglobin Concent 32, Mean Corpuscular Volume 88, Mean Platelet Volume 11.2H, Monocytes # (Auto) 0.8, Monocytes (%) (Auto) 8, Neutrophils # ( Auto) 8.1H, Neutrophils (%) (Auto) 79H, Platelet Count 159, Red Blood Count 3.96L, Red Cell Distribution Width 14.9H, White Blood Count 10.2 Microbiology 06/13/16 Urine Culture - Preliminary, Resulted FREDERICK LEA MD Jun 15, 2016 09:31
[2016-06-15 10:20] VITALS: BP 137/76
[2016-06-15] MEDS: DOCUSATE SODIUM 100 MG (COLACE) CAP PO SCH (10:30)
[2016-06-15 14:50] VITALS: BP 126/85
--- NOTE | 2016-06-15 18:31 | Anesthesia-Regional Post-Op ---
Regional Patient Condition Mental Status: Alert, Oriented x3 Circulation: Same as Pre-Op Headache: Absent Sensation: Full Recovery Motor Block: Absent Post Op Complications Complications None Follow Up Care/Instructions Patient Instructions None needed. Anesthesia/Patient Condition Patient is doing well, no complaints, stable vital signs, no apparent adverse anesthesia problems. No complications reported per nursing. BROOKS JC CRNA Jun 15, 2016 18:31
== END 2016-06-15 18:35 | disposition home or self-care (01) | DRG 775 ==
LOC: WSo 19:37 → LDRP 19:37 → WSo 20:20 → LDRP 20:20
PROVIDERS: ADMIT Obstetrics & Gynecology; ATTEND Obstetrics & Gynecology
PROC: 10E0XZZ Delivery of Products of Conception, External Approach (ICD-10-PCS; principal; 2016-06-14)
PROC: 3E033GC Introduction of Other Therapeutic Substance into Peripheral Vein, Percutaneous Approach (ICD-10-PCS; 2016-06-14)
DX: O26.893 Other specified pregnancy related conditions, third trimester (principal); O09.523 Supervision of elderly multigravida, third trimester; O99.62 Diseases of the digestive system complicating childbirth; K21.9 Gastro-esophageal reflux disease without esophagitis; O99.214 Obesity complicating childbirth; E66.9 Obesity, unspecified; Z68.36 Body mass index [BMI] 36.0-36.9, adult; O99.284 Endocrine, nutritional and metabolic diseases complicating childbirth; E03.9 Hypothyroidism, unspecified; O99.52 Diseases of the respiratory system complicating childbirth; J45.909 Unspecified asthma, uncomplicated; Z37.0 Single live birth; Z3A.39 39 weeks gestation of pregnancy
CPT/HCPCS: 36415; 80306; 81000; 85025; 86850; 86900; 86901; 87088